=== PATIENT | female | born 1950 | race Caucasian/White ===

== ENCOUNTER 2016-10-27 08:30 | Outpatient (CLI) | payer MEDICARE, OTHER ==
[2016-10-27 08:59] LABS: #Basophils 0.1 thou/uL (0.0-0.2); #Eosinphils 0.2 thou/uL (0.0-0.7); #Monocytes 0.9 thou/uL (0.11-0.59); #Neutrophils 4.8 thou/uL (1.40-6.50); %Basophils 1.6 % (0.0-1.0); %Eosinophils 2.4 % (0.0-10.0); %Lymphocytes 25.3 % (21.0-51.0); %Monocytes 10.6 % (0.0-10.0); %Neutrophils 60.1 % (42.0-75.0); Hemoglobin 14.3 g/dL (12.0-16.0); Mean Corpuscular HGB CONC 33.9 g/dL (32.0-36.0); Mean Corpuscular Hemoglobin 29.5 pg (27.0-31.0); Platelet Count 292 thou/uL (130-400); RBC Distribution Width 11.6 % (11.5-14.5); Red Blood Cell (RBC) Count 4.86 mill/uL (4.20-5.40)
[2016-10-27 09:04] LABS: Hemoglobin A1c 5.6 % (4.0-6.0)
[2016-10-27 09:17] LABS: ALT (SGPT) 26 U/L (0-55); AST (SGOT) 22 U/L (5-34); Albumin 4.4 g/dL (3.4-4.8); Alkaline Phosphatase 82 U/L (40-150); Anion Gap 13 mmol/L (10-20); BUN (Urea Nitrogen) 10 mg/dL (9.8-20.1); Bilirubin, Total 0.8 mg/dL (0.2-1.2); Calc. Creatinine Clearance 0 mL/min (70-130); Calcium 9.6 mg/dL (7.8-10.44); Carbon Dioxide 29 mmol/L (23-31); Cardiac Risk 3.8 (Less than 4.5); Chloride 102 mmol/L (98-107); Cholesterol 163 mg/dL (< 200 Desired); Estimated GFR-MDRD 54; Glucose 102 mg/dL (80-115); HDL Cholesterol 43 mg/dL (>60 Neg Risk); LDL Cholesterol, Calculated 86 mg/dL; Potassium 4.1 mmol/L (3.5-5.1); Protein, Total 7.4 g/dL (5.8-8.1); Sodium 140 mmol/L (136-145); Triglycerides 172 mg/dL (Less than 150)
[2016-10-27 09:34] LABS: Thyroid Stimulating Hormone 1.7229 uIU/mL (0.35-4.94)
[2016-10-27 11:10] LABS: Free T4 (Free Thyroxine) 0.94 ng/dL (0.70-1.48)
== END 2016-10-27 08:31 | disposition home or self-care (01) ==
LOC: MADLAB 08:30
PROVIDERS: ATTEND Internal Medicine
DX: E78.5 Hyperlipidemia, unspecified (principal); K21.0 Gastro-esophageal reflux disease with esophagitis; R79.89 Other specified abnormal findings of blood chemistry
CPT/HCPCS: 36415; 80053; 80061; 83036; 84439; 84443; 85025

== ENCOUNTER 2017-06-21 10:30 | Outpatient (CLI) | payer MEDICARE, OTHER ==
[~2017-06-21 10:30] MED LIST: Iopamidol 370 76% 100 ML VIAL ONE
--- NOTE | 2017-06-21 13:47 | CT ---
CT ABDOMEN AND PELVIS WITH AND WITHOUT IV CONTRAST: HISTORY: Hematuria. FINDINGS: There are calcified granulomas in the right lower lung and the spleen. No calcified gallstones are seen. No free air or free fluid is noted in the abdomen or pelvis. The liver, pancreas, and adrenal glands appear normal. No calculi are seen in the kidneys, ureters, or the urinary bladder. No hydroureteral nephrosis is noted on either side. No renal mass is iden tified. There is normal contrast excretion into the ureters and the urinary bladder. No free air, free fluid, or lymphadenopathy is seen in the abdomen or pelvis. There are vascular ca lcifications without evidence of aneurysmal dilatation of the abdominal aorta. Uterus is present. There are degenerative changes in the spine. IMPRESSION: No CT evidence of urinary tract calculi/obstruction or renal mass. POS: [facility]
== END 2017-06-21 10:31 | disposition home or self-care (01) ==
LOC: MADCT 10:30
PROVIDERS: ATTEND Urology
DX: R31.1 Benign essential microscopic hematuria (principal)
CPT/HCPCS: 36415; 74178; 82565

== ENCOUNTER 2018-11-01 08:19 | Outpatient (CLI) | payer MEDICARE, OTHER ==
[2018-11-01 13:39] LABS: ALT (SGPT) 27 U/L (8-55); AST (SGOT) 20 U/L (5-34); Albumin 4.3 g/dL (3.4-4.8); Alkaline Phosphatase 64 U/L (40-150); Anion Gap 13 mmol/L (10-20); BUN (Urea Nitrogen) 12 mg/dL (9.8-20.1); CK (CPK) 53 U/L (29-168); Calc. Creatinine Clearance 0 mL/min (70-130); Calcium 9.6 mg/dL (7.8-10.44); Carbon Dioxide 29 mmol/L (23-31); Chloride 105 mmol/L (98-107); Cholesterol 135 mg/dl (< 200 Desired); Estimated GFR-MDRD 71; Globulin 2.6 g/dL (2.4-3.5); Glucose 106 mg/dL (80-115); HDL Cholesterol 34 mg/dL (>60 Neg Risk); LDL Cholesterol, Calculated 52 mg/dL; Potassium 4.1 mmol/L (3.5-5.1); Protein, Total 6.9 g/dL (6.0-8.3); Sodium 143 mmol/L (136-145); Triglycerides 246 mg/dL (Less than 150)
[2018-11-01 18:41] LABS: Hemoglobin A1c 5.9 % (4.0-6.0)
== END 2018-11-01 08:20 | disposition home or self-care (01) ==
LOC: MADLAB 08:19
PROVIDERS: ATTEND Internal Medicine
DX: E78.5 Hyperlipidemia, unspecified (principal); R79.89 Other specified abnormal findings of blood chemistry
CPT/HCPCS: 36415; 80053; 80061; 82550; 83036

== ENCOUNTER 2025-07-17 08:02 | Outpatient (CLI) | payer MEDICARE, OTHER ==
[2025-07-17 08:41] LABS: ALT (SGPT) 19 U/L (Less than 34); AST (SGOT) 21 U/L (11-34); Albumin 4.3 g/dL (3.1-4.5); Alkaline Phosphatase 66 U/L (40-110); Anion Gap 13 mmol/L (10-20); BUN (Urea Nitrogen) 13 mg/dL (9.8-20.1); Bilirubin, Total 1.0 mg/dL (0.3-1.2); Calc. Creatinine Clearance 0 mL/min (70-130); Calcium 9.7 mg/dL (7.8-10.44); Carbon Dioxide 30 mmol/L (23-31); Cardiac Risk 3.2 (Less than 4.5); Chloride 103 mmol/L (98-107); Cholesterol 126 mg/dl (< 200 Desired); Globulin 3.1 g/dL (2.4-3.5); Glucose 95 mg/dL (83-110); HDL Cholesterol 40 mg/dL (>60 Neg Risk); LDL Cholesterol, Calculated 55 mg/dL; Potassium 4.4 mmol/L (3.5-5.1); Sodium 142 mmol/L (136-145); Triglycerides 153 mg/dL (Less than 150)
== END 2025-07-17 08:03 | disposition home or self-care (01) ==
LOC: MADLAB 08:02
PROVIDERS: ATTEND Internal Medicine
DX: E78.5 Hyperlipidemia, unspecified (principal); R79.89 Other specified abnormal findings of blood chemistry
CPT/HCPCS: 36415; 80053; 80061; 83036